=== PATIENT | female | born 1960 | race Caucasian/White ===

== ENCOUNTER 2019-05-24 16:44 | Inpatient (IN) | payer OTHER ==
[2019-05-24] MEDS ORDERED: DOCUSATE SODIUM 100 MG CAP PO (17:30)
[2019-05-24] MEDS ORDERED: ACETAMINOPHEN 325 MG TAB PO (17:30)
[2019-05-24] MEDS ORDERED: NACL 0.9% 3 ML SYG IV (17:30)
[2019-05-24] MEDS ORDERED: ONDANSETRON 4 MG INJ IV (17:30)
[2019-05-24] MEDS ORDERED: HYDROCODONE/APAP (5/325) TAB PO (17:30)
[2019-05-24] MEDS ORDERED: morphine 2 MG INJ IV (17:30)
[2019-05-24] MEDS ORDERED: HALOPERIDOL 5 MG INJ IM (18:00)
[2019-05-24] MEDS ORDERED: LABETALOL HCL 20MG INJ IV (18:00)
[2019-05-24] MEDS: LORAZEPAM 2 MG INJ IV (20:28)
[2019-05-24] MEDS: SOD CHLORIDE 0.9% 1,000 ML IV (20:29)
[2019-05-24] MEDS: OLANZAPINE 2.5 MG TAB PO (21:09)
[2019-05-24] MEDS: FAMOTIDINE 20 MG TAB PO (21:09)
[2019-05-24 21:31] LABS: FOLATE > 20.0 ng/ml (2.8-20.0)
[2019-05-25] MEDS: SOD CHLORIDE 0.9% 1,000 ML IV ×2 (03:17→05:29)
[2019-05-25 08:28] LABS: ADD MAN DIFF? NO
[2019-05-25 08:40] LABS: WHITE BLOOD COUNT 6.5 10^3/ul (4.8-10.8)
[2019-05-25 08:40] LABS: BASOPHILS % 0.6 % (0.0-2.0); EOSINOPHILS # 0.2 10^3/ul (0.0-0.5); EOSINOPHILS % 3.5 % (0.0-7.0); HEMATOCRIT 45.1 % (37.0-47.0); HEMOGLOBIN 14.5 g/dl (12.0-16.0); LYMPHOCYTES # 1.2 10^3/ul (0.8-2.9); LYMPHOCYTES % 18.1 % (15.0-51.0); MEAN CORPUSCULAR HGB CONC 32.2 g/dl (32.0-37.0); MEAN CORPUSCULAR VOLUME 99.6 fl (82.0-101.0); MEAN PLATELET VOLUME 10.4 fl (7.4-10.4); MONOCYTE # 0.7 10^3/ul (0.3-0.9); MONOCYTES % 11.1 % (0.0-11.0); NEUTROPHIL # 4.3 10^3/ul (1.6-7.5); NEUTROPHILS % 66.5 % (39.0-77.0); PLATELET COUNT 256 10^3/UL (140-415); RED BLOOD COUNT 4.53 10^6/ul (4.20-5.40); RED CELL DISTRIBUTION WIDTH 11.7 % (11.5-14.5)
[2019-05-25 08:52] LABS: HEMOGLOBIN A1C 5.4 % (0-5.9)
[2019-05-25 08:58] LABS: INR 0.91; PROTIME 12.4 Sec (11.9-14.9)
[2019-05-25 09:02] LABS: ALANINE AMINOTRANSFERASE 26 IU/L (13-69); ALBUMIN 3.9 g/dl (3.3-4.9); ALKALINE PHOSPHATASE 141 IU/L (42-121); ANION GAP 2 (5-13); ASPARTATE AMINO TRANSFERASE 30 IU/L (15-46); BILIRUBIN,INDIRECT 0.7 mg/dl (0-1.1); BILIRUBIN,TOTAL 0.7 mg/dl (0.2-1.3); BLOOD UREA NITROGEN 13 mg/dl (7-20); CALCIUM 9.2 mg/dl (8.4-10.2); CARBON DIOXIDE 30 mmol/L (21-31); CHLORIDE 109 mmol/L (97-110); CREATININE 0.62 mg/dl (0.44-1.00); Estimated GFR > 60 mL/min (>60); GLUCOSE 88 mg/dl (70-220); POTASSIUM 3.6 mmol/L (3.5-5.1); SODIUM 141 mmol/L (135-144); TOTAL PROTEIN 7.8 g/dl (6.1-8.1)
[2019-05-25] MEDS: OLANZAPINE 2.5 MG TAB PO ×2 (09:20→20:57)
[2019-05-25] MEDS: FAMOTIDINE 20 MG TAB PO (09:20)
[2019-05-25] MEDS: ENOXAPARIN 40 MG/0.4 ML SYG SC (09:25)
[2019-05-25 15:50] LABS: RAPID PLASMA REAGIN NONREACTIVE (NR)
[2019-05-25] MEDS: LISINOPRIL 5 MG TAB PO (18:14)
[2019-05-26] MEDS: LISINOPRIL 5 MG TAB PO (09:00)
[2019-05-26] MEDS: FAMOTIDINE 20 MG TAB PO (09:49)
[2019-05-26] MEDS: ENOXAPARIN 40 MG/0.4 ML SYG SC (09:50)
[2019-05-26] MEDS: OLANZAPINE 2.5 MG TAB PO ×2 (10:22→20:20)
[2019-05-27] MEDS: OLANZAPINE 2.5 MG TAB PO (09:00)
[2019-05-27] MEDS: LISINOPRIL 5 MG TAB PO (09:06)
[2019-05-27] MEDS: FAMOTIDINE 20 MG TAB PO (09:06)
[2019-05-27] MEDS: ENOXAPARIN 40 MG/0.4 ML SYG SC (09:08)
[2019-05-27 12:21] LABS: ADD UMIC NO; UR ASCORBIC ACID NEGATIVE (NEGATIVE); UR BILIRUBIN (Dip) NEGATIVE (NEGATIVE); UR BLOOD (Dip) NEGATIVE (NEGATIVE); UR CLARITY CLEAR (CLEAR); UR COLOR YELLOW (YELLOW); UR GLUCOSE (Dip) NEGATIVE (NEGATIVE); UR KETONES (Dip) NEGATIVE (NEGATIVE); UR LEUKOCYTE ESTERASE (Dip) NEGATIVE Leu/ul (NEGATIVE); UR NITRITE (Dip) NEGATIVE (NEGATIVE); UR SPECIFIC GRAVITY (Dip) 1.011 (1.003-1.030); UR TOTAL PROTEIN (Dip) NEGATIVE (NEGATIVE); UR UROBILINOGEN (Dip) NEGATIVE (NEGATIVE)
== END 2019-05-27 16:20 | disposition home or self-care (01) | DRG 885 ==
LOC: TEL 05-25 08:45 → MS3 05-26 22:30
PROVIDERS: Internal Medicine
DX: F23 Brief psychotic disorder (principal); Z86.73 Personal history of transient ischemic attack (TIA), and cerebral infarction without residual deficits; I10 Essential (primary) hypertension
CPT/HCPCS: 71045; 80053; 81003; 82607; 82746; 83036; 84443; 85025; 85610; 86592